=== PATIENT | male | born 1940 | race Hispanic/Latino ===

== ENCOUNTER 2020-05-27 07:49 | Inpatient (IN) | payer OTHER, SELFPAY ==
[2020-05-27 08:20] LABS: Absolute Lymphocytes (CBC) 1.6 K/uL (0.7-4.9); Basophils % 0.6 % (0-1.3); Hematocrit 44.8 % (39.6-49.0); Lymphocytes % 18.1 % (15.3-44.8); MPV 8.3 fL (7.6-11.3); RBC Red Blood Cell Count 5.22 M/uL (4.33-5.43)
[2020-05-27 08:29] LABS: Protime INR 0.97
[2020-05-27 08:32] LABS: BUN Blood Urea Nitrogen 15 mg/dL (7-18); Bicarbonate 26 mmol/L (21-32); Glucose Level 106 mg/dL (74-106); Magnesium 1.9 mg/dL (1.8-2.4); Potassium 3.6 mmol/L (3.5-5.1); Sodium Level 137 mmol/L (136-145); Troponin (Emerg Dept Use Only) < 0.02 ng/mL (0.0-0.045)
--- NOTE | 2020-05-27 08:46 | RAD REPORT ---
EXAM DESCRIPTION: CT - Head Brain Wo Cont - 05/27/2020 8:25 am CLINICAL HISTORY: eft sided weakness and numbness COMPARISON: No comparisons TECHNIQUE: Axial 5 mm thick images of the head were obtained without IV contrast. All CT scans are performed using dose optimization technique as appropriate and may include automated exposure control or mA/KV adjustment according to patient size. FINDINGS: No intracranial hemorrhage, mass, edema or shift of mid-line structures. No acute cortical based infarction identified. No cortical edema or sulcal effacement. Moderate severity atrophy taveras es are present with ventricles in proportion to the volume loss. Chronic ischemic changes are seen th roughout the cerebral white matter and to a lesser degree in the brainstem and basal ganglia. Mastoid air cells and visualized portions of the paranasal sinuses are clear. No acute bony findings. Findings communicated to the emergency department 8:41 a.m.. IMPRESSION: No hemorrhage is present. No acute cortical based infarction seen. Moderate severity atrophy present with ventricles in proportion. Moderate severity chronic ischemic change. Chronic ischemic change can mask nonhemorrhagic white ewelina er CVA.
--- NOTE | 2020-05-27 09:22 | ER ---
Nurse's Notes [facility] Name: Ronnell Levy Age: 80 yrs Sex: Male : 1940 Arrival Date: 05/27/2020 Time: 07:50 Bed 5 Private MD: Diagnosis: Cerebral infarction;Weakness;Paresthesia of skin Presentation: 05/27 08:00 Chief complaint: Left sided weakness since Thursday. Coronavirus screen: At this time, hb the client does not indicate any symptoms associated with coronavirus-19. Ebola Screen: No symptoms or risks identified at this time. Initial Sepsis Screen: Does the patient meet any 2 criteria? No. Patient's initial sepsis screen is negative. Does the patient have a suspected source of infection? No. Patient's initial sepsis screen is negative. Risk Assessment: Do you want to hurt yourself or someone else? Patient reports no desire to harm self or others. Onset of symptoms was May 25, 2020. 08:00 Method Of Arrival: Wheelchair hb 08:00 Acuity: MARCIE 3 hb Historical: - Allergies: 08:02 No Known Allergies; hb - PMHx: 08:02 Hypertension; hb - Immunization history:: Adult Immunizations up to date. - Social history:: Smoking status: Patient denies any tobacco usage or history of. - Family history:: not pertinent. - Hospitalizations: : No recent hospitalization is reported. Screenin:03 Abuse screen: Denies threats or abuse. Denies injuries from another. Nutritional hb screening: No deficits noted. On. Tuberculosis screening: No symptoms or risk factors identified. Fall Risk Total Muñoz Fall Scale indicates Low Risk Score (25-44 pts). Fall prevention measures have been instituted. Side Rails Up X 2 Frequent Obs/Assesments occuring Family Present and informed to notify staff if they need to leave bedside As available Patient and Family Educated on Fall Prevention Program and strategies. 08:11 Patient has been NPO before screening. The patient is alert, able to follow commands. sv The patient does not exhibit slurred or garbled speech The patient is not exhibiting difficulty speaking. The patient does not exhibit difficulty understanding words. The patient is able to swallow own secretions with no drooling or need for suction. Patient tolerated one teaspoon of water. No drooling, immediate coughing, gurgling, or clearing of the throat was noted. The patient tolerated 90mL of water. No drooling, immediate coughing, gurgling, or clearing of the throat was noted. The patient passed the bedside swallow screening. Oral medications may be given as ordered. Contact Physician for further diet orders. Provider notified of bedside swallow screening results: Graeme Hogan MD. Assessment: 07:55 General: Appears in no apparent distress. comfortable, slender, Behavior is calm, sv cooperative, appropriate for age. Pain: Denies pain. Neuro: Level of Consciousness is awake, alert, obeys commands, Oriented to person, place, time, situation, Moves all extremities. Weakness in left arm(s) leg(s) Speech is normal, Facial symmetry appears normal, Reports weakness. Cardiovascular: Patient's skin is warm and dry. Rhythm is sinus rhythm. Respiratory: Airway is patent Respiratory effort is even, unlabored, Respiratory pattern is regular, symmetrical. Derm: Skin is pink, warm \T\ dry. 09:20 Reassessment: Patient appears in no apparent distress at this time. No changes from sv previously documented assessment. Patient and/or family updated on plan of care and expected duration. Pain level reassessed. Patient is alert, oriented x 3, equal unlabored respirations, skin warm/dry/pink. 09:36 Reassessment: Dr Fontenot at the bedside. sv 10:17 Reassessment: Attempted to call report, nurse unavailable. sv 10:30 Reassessment: Patient appears in no apparent distress at this time. No changes from sv previously documented assessment. Patient and/or family updated on plan of care and expected duration. Pain level reassessed. Patient is alert, oriented x 3, equal unlabored respirations, skin warm/dry/pink. 10:39 Reassessment: Pt to go upstairs after her room is cleaned upstairs. 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 ds1 07:51 Graeme Hogan MD is Attending Physician. rn 07:58 Emmie Noyola, JOSE DAVID is Primary Nurse. sv 08:00 Inserted saline lock: 20 gauge in right forearm, using aseptic technique. Blood sv collected. Flushed right forearm with 5 ml normal saline. 08:02 Triage completed. hb 08:02 Arm band placed on. hb 08:03 Patient has correct armband on for positive identification. Bed in low position. Call hb light in reach. 08:11 EKG done, by ED staff, reviewed by Graeme Hogan MD. em 08:26 Head Brain Wo Cont In Process Unspecified. EDMS 08:32 X-ray(s) taken. sv 08:40 Stroke CXR 1 View In Process Unspecified. EDMS 09:21 Kali Fontenot is Hospitalizing Provider. rn 09:32 Awaiting bed assignment. sv 10:37 No provider procedures requiring assistance completed. Patient admitted, IV remains in sv place. intact. Administered Medications: 09:20 Drug: foLIC Acid 1 mg Route: IVPB; Site: right forearm; sv 09:21 Follow up: Response: No adverse reaction; IV Status: Completed infusion sv 09:20 Drug: Aspirin Chewable Tablet 324 mg Route: PO; sv 09:37 Follow up: Response: No adverse reaction sv Outcome: 09:21 Decision to Hospitalize by Provider. rn 10:37 Admitted to Tele accompanied by tech, via stretcher, room 211, with chart, Report sv called to [facility] 10:37 Condition: stable 10:37 Instructed on the need for admit. 10:49 Patient left the ED. sv NIH Stroke Scale - NIH Stroke Score Date: 05/27/2020 Time: 07:55 Total Score = 4 1a. Level of Consciousness (LOC) - 0(Alert) 1b. Level of Consciousness (LOC) (Year \T\ Age) - 0(Both) 1c. LOC Commands (Open \T\ Closes Eyes/Patrol Conductor) - 0(Both) 2. Best Gaze (Lateral Gaze Paresis) - 0(Normal) 3. Visual Field Loss - 0(No visual loss) 4. Facial Palsy - 0(Normal) 5a. Left Arm: Motor (10-second hold) - 1(Drift) 5b. Right Arm: Motor (10-second hold) - 0(No drift) 6a. Left Leg: Motor (5-second hold - always test supine) - 2(Drift, some effort against gravity) 6b. Right Leg: Motor (5-second hold - always test supine) - 0(No drift) 7. Limb Ataxia (finger/nose \T\ heel/roach - test with eyes open) - 0(Absent) 8. Sensory Loss (pinprick arms/legs/face) - 1(Mild to moderate loss) 9. Best Language: Aphasia (description/naming/reading) - 0(No aphasia) 10. Dysarthria (speech clarity - read or repeat words) - 0(Normal) 11. Extinction and Inattention (visual/tactile/auditory/spatial/personal) - 0(No abnormality) Initials: yo NIH Stroke Scale - NIH Stroke Score Date: 05/27/2020 Time: 08:03 Total Score = 4 1a. Level of Consciousness (LOC) - 0(Alert) 1b. Level of Consciousness (LOC) (Year \T\ Age) - 0(Both) 1c. LOC Commands (Open \T\ Closes Eyes/Patrol Conductor) - 0(Both) 2. Best Gaze (Lateral Gaze Paresis) - 0(Normal) 3. Visual Field Loss - 0(No visual loss) 4. Facial Palsy - 0(Normal) 5a. Left Arm: Motor (10-second hold) - 1(Drift) 5b. Right Arm: Motor (10-second hold) - 0(No drift) 6a. Left Leg: Motor (5-second hold - always test supine) - 2(Drift, some effort against gravity) 6b. Right Leg: Motor (5-second hold - always test supine) - 0(No drift) 7. Limb Ataxia (finger/nose \T\ heel/roach - test with eyes open) - 0(Absent) 8. Sensory Loss (pinprick arms/legs/face) - 1(Mild to moderate loss) 9. Best Language: Aphasia (description/naming/reading) - 0(No aphasia) 10. Dysarthria (speech clarity - read or repeat words) - 0(Normal) 11. Extinction and Inattention (visual/tactile/auditory/spatial/personal) - 0(No abnormality) Initials: rn Signatures: Dispatcher [employer] Emmie Woods RN RN sv Munoz, Edgar, Mecca Alaniz RN ds1 Graeme Hogan MD MD rn Baxter, Heather, RN RN hb
--- NOTE | 2020-05-27 09:22 | EDPHYS ---
Physician Documentation [facility] Name: Ronnell Levy Age: 80 yrs Sex: Male : 1940 Arrival Date: 05/27/2020 Time: 07:50 Bed 5 Private MD: ED Physician Graeme Hogan HPI: 05/27 08:28 This 80 yrs old Male presents to ER via Wheelchair with complaints of Left rn Side Weakness. 08:28 The patient presents to the emergency department with weakness of the left upper rn extremity, left lower extremity, difficulty standing, paresthesias of the left lower extremity, left upper extremity. Onset: The symptoms/episode began/occurred 3 day(s) ago. Associated signs and symptoms: Pertinent positives: weakness, Pertinent negatives: syncope, blurred vision, double vision, visual field changes, loss of vision. Severity of symptoms: At their worst the symptoms were moderate in the emergency department the symptoms are unchanged. Current symptoms: paralysis or paresis. The patient has not experienced similar symptoms in the past. Reports began Thursday with left sided weakness, got a little better, but never went away, woke up this morning with worse symptoms, unable to stand and fell forward. Has not seen a doctor for 11 years. No vision or speech problems. . Historical: - Allergies: 08:02 No Known Allergies; hb - PMHx: 08:02 Hypertension; hb - Immunization history:: Adult Immunizations up to date. - Social history:: Smoking status: Patient denies any tobacco usage or history of. - Family history:: not pertinent. - Hospitalizations: : No recent hospitalization is reported. ROS: 08:28 Constitutional: Negative for fever, chills, and weight loss, Eyes: Negative for injury, rn pain, redness, and discharge, Neck: Negative for injury, pain, and swelling, Cardiovascular: Negative for chest pain, palpitations, and edema, Respiratory: Negative for shortness of breath, cough, wheezing, and pleuritic chest pain, Abdomen/GI: Negative for abdominal pain, nausea, vomiting, diarrhea, and constipation, MS/Extremity: Negative for injury and deformity, Skin: Negative for injury, rash, and discoloration, Neuro: Negative for headache,and seizure. Exam: 08:28 Constitutional: This is a well developed, well nourished patient who is awake, alert, rn and in no acute distress. Head/Face: Normocephalic, atraumatic. Eyes: Pupils equal round and reactive to light, extra-ocular motions intact. Periorbital areas with no swelling, redness, or edema. Cardiovascular: Regular rate and rhythm. No pulse deficits. Respiratory: Speaking full sentences. No increased work of breathing, no retractions or nasal flaring. Abdomen/GI: soft, non-tender Back: No spinal tenderness. No costovertebral tenderness. Full range of motion. MS/ Extremity: Pulses equal, no cyanosis. Neuro: Awake and alert, GCS 15, oriented to person, place, time, and situation. Cranial nerves II-XII grossly intact. Motor strength 5/5 RUE/RLE, 4+/5 LUE, 4-/5 LLE. Decreased sensation to sharp prick LUE/LLE. Unable to support himself, almost fell trying to stand from wheelchair. 09:59 ECG was reviewed by the Attending Physician. rn Vital Signs: 08:00 BP 201 / 104; Pulse 82; Resp 16; Temp 97.8; Pulse Ox 100% ; Pain 0/10; hb 08:12 BP 193 / 101; Pulse 83; Resp 17; Pulse Ox 97% on R/A; sv 08:44 BP 171 / 93; Pulse 77 MON; Resp 20; Pulse Ox 98% on R/A; sv 10:03 BP 179 / 88; Pulse 80; Resp 17; Pulse Ox 98% ; sv 08:44 Sinus Rhythm sv NIH Stroke Scale Scores: 07:55 NIHSS Score: 4 sv 08:03 NIHSS Score: 4 rn MDM: 07:51 Patient medically screened. rn 08:04 ED course: Onset of symptoms Thursday, never went away totally, worse when woke up this rn morning, unable to stand.. 09:20 Data reviewed: vital signs, nurses notes, lab test result(s), EKG, radiologic studies, rn CT scan, and as a result, I will admit patient. Counseling: I had a detailed discussion with the patient and/or guardian regarding: the historical points, exam findings, and any diagnostic results supporting the discharge/admit diagnosis, lab results, radiology results, the need for further work-up and treatment in the hospital. Admission orders: after a detailed discussion of the patient's condition and case, the admit orders are written by me. ED course: Pt with no acute findings on ct head, likely ischemic stroke 3 days ago, will admit to Dr. Fontenot for stroke w/u, neuro consult, and MRI tomorrow. . 05/27 08:02 Order name: Magnesium; Complete Time: 08:34 rn 05/27 08:02 Order name: Troponin (emerg Dept Use Only); Complete Time: 08: rn 05/27 08:02 Order name: Basic Metabolic Panel; Complete Time: : rn 05/27 08:02 Order name: CBC with Diff; Complete Time: : rn 05/27 08:02 Order name: Protime (+inr); Complete Time: : rn 05/27 08:02 Order name: Ptt, Activated; Complete Time: : rn 05/27 08:02 Order name: Stroke CXR 1 View; Complete Time: 09:56 rn 05/27 08:02 Order name: EKG; Complete Time: 08:04 rn 05/27 08:02 Order name: Accucheck; Complete Time: 08: rn 05/27 08:11 Order name: Head Brain Wo Cont; Complete Time: 09:00 EDMS 05/27 08:18 Order name: Glucose, Ancillary Testing; Complete Time: :34 EDMS 05/27 08:02 Order name: Cardiac monitoring; Complete Time: 08: rn 05/27 08:02 Order name: EKG - Nurse/Tech; Complete Time: 08: rn 05/27 08:02 Order name: IV Saline Lock; Complete Time: 08: rn 05/27 08:02 Order name: Labs collected and sent; Complete Time: 08: rn 05/27 08:02 Order name: NPO; Complete Time: 08: rn 05/27 08:02 Order name: O2 Per Protocol; Complete Time: 08: rn 05/27 08:02 Order name: O2 Sat Monitoring; Complete Time: : rn 05/27 08:02 Order name: Stroke Swallow Screen; Complete Time: 08:10 rn EC:59 Rate is 79 beats/min. Rhythm is regular. QRS [place] is Normal. [place] interval is normal. QRS rn interval is normal. QT interval is normal. No Q waves. T waves are Normal. No ST changes noted. Clinical impression: Normal ECG. Interpreted by me. Reviewed by me. Administered Medications: 09:20 Drug: foLIC Acid 1 mg Route: IVPB; Site: right forearm; sv 09:21 Follow up: Response: No adverse reaction; IV Status: Completed infusion sv 09:20 Drug: Aspirin Chewable Tablet 324 mg Route: PO; sv 09:37 Follow up: Response: No adverse reaction sv Disposition: 05/27/20 09:21 Hospitalization ordered by Kali Fontenot for Inpatient Admission. Preliminary diagnosis are Cerebral infarction, Weakness, Paresthesia of skin. - Bed requested for Telemetry/MedSurg (Inpatient). - Status is Inpatient Admission. sv - Condition is Stable. - Problem is new. - Symptoms are unchanged. NIH Stroke Scale - NIH Stroke Score Date: 05/27/2020 Time: 07:55 Total Score = 4 1a. Level of Consciousness (LOC) - 0(Alert) 1b. Level of Consciousness (LOC) (Year \T\ Age) - 0(Both) 1c. LOC Commands (Open \T\ Closes Eyes/Clamp Truck Driver) - 0(Both) 2. Best Gaze (Lateral Gaze Paresis) - 0(Normal) 3. Visual Field Loss - 0(No visual loss) 4. Facial Palsy - 0(Normal) 5a. Left Arm: Motor (10-second hold) - 1(Drift) 5b. Right Arm: Motor (10-second hold) - 0(No drift) 6a. Left Leg: Motor (5-second hold - always test supine) - 2(Drift, some effort against gravity) 6b. Right Leg: Motor (5-second hold - always test supine) - 0(No drift) 7. Limb Ataxia (finger/nose \T\ heel/roach - test with eyes open) - 0(Absent) 8. Sensory Loss (pinprick arms/legs/face) - 1(Mild to moderate loss) 9. Best Language: Aphasia (description/naming/reading) - 0(No aphasia) 10. Dysarthria (speech clarity - read or repeat words) - 0(Normal) 11. Extinction and Inattention (visual/tactile/auditory/spatial/personal) - 0(No abnormality) Initials: sv NIH Stroke Scale - NIH Stroke Score Date: 05/27/2020 Time: 08:03 Total Score = 4 1a. Level of Consciousness (LOC) - 0(Alert) 1b. Level of Consciousness (LOC) (Year \T\ Age) - 0(Both) 1c. LOC Commands (Open \T\ Closes Eyes/Clamp Truck Driver) - 0(Both) 2. Best Gaze (Lateral Gaze Paresis) - 0(Normal) 3. Visual Field Loss - 0(No visual loss) 4. Facial Palsy - 0(Normal) 5a. Left Arm: Motor (10-second hold) - 1(Drift) 5b. Right Arm: Motor (10-second hold) - 0(No drift) 6a. Left Leg: Motor (5-second hold - always test supine) - 2(Drift, some effort against gravity) 6b. Right Leg: Motor (5-second hold - always test supine) - 0(No drift) 7. Limb Ataxia (finger/nose \T\ heel/roach - test with eyes open) - 0(Absent) 8. Sensory Loss (pinprick arms/legs/face) - 1(Mild to moderate loss) 9. Best Language: Aphasia (description/naming/reading) - 0(No aphasia) 10. Dysarthria (speech clarity - read or repeat words) - 0(Normal) 11. Extinction and Inattention (visual/tactile/auditory/spatial/personal) - 0(No abnormality) Initials: rn Signatures: Dispatcher [employer] Emmie Woods RN RN sv Nieto, Roman, MD MD rn Baxter, Heather, RN RN hb Botello, Elizabeth eb Corrections: (The following items were deleted from the chart) 08:11 08:05 CT-STROKE BRAIN W/O CONTRAST+CT.RAD.BRZ ordered. [facility] EDPA 10:11 09:21 Hospitalization Ordered by Kali Fontenot for Inpatient Admission. [place] Preliminary diagnosis is Cerebral infarction; Weakness; Paresthesia of skin. Bed requested for Telemetry/MedSurg (Inpatient). Status is Inpatient Admission. Condition is Stable. Problem is new. Symptoms are unchanged. rn 10:49 10:11 05/27/2020 09:21 Hospitalization Ordered by Kali Fontenot for Inpatient Admission. Preliminary diagnosis is Cerebral infarction; Weakness; Paresthesia of skin. Bed requested for Telemetry/MedSurg (Inpatient). Status is Inpatient Admission. Condition is Stable. Problem is new. Symptoms are unchanged. eb
[2020-05-27] MEDS ORDERED: ASPIRIN 81 MG CHEWABLE TABLET ONE (09:23)
[2020-05-27] MEDS ORDERED: FOLIC ACID 5 MG/ML VIAL ONE (09:28)
--- NOTE | 2020-05-27 09:46 | RAD REPORT ---
EXAM DESCRIPTION: RAD - Chest Single View - 05/27/2020 8:40 am CLINICAL HISTORY: weakness, Stroke protocol chest COMPARISON: January 2009 TECHNIQUE: AP portable chest image was obtained 05/27/2020 8:40 am . FINDINGS: No focal mass or consolidation. Interstitial pattern matches comparison. Heart and vascula ture are normal. No measurable pleural effusion and no pneumothorax. No acute bony abnormality seen. No acute aortic findings suspected. IMPRESSION: No acute cardiopulmonary process. No significant change from remote 2008 study.
--- NOTE | 2020-05-27 10:10 | P.HP ---
Certification for Inpatient Patient admitted to: Observation With expected LOS: <2 Midnights Practitioner: I am a practitioner with admitting privileges, knowledge of patient current condition, hospital course, and medical plan of care. Services: Services provided to patient in accordance with Admission requirements found in Title 42 Section 412.3 of the Code of Federal Regulations Patient History Date of Service: 05/27/20 Reason for admission: Left-sided weakness History of Present Illness: 80-year-old Latvian-speaking gentleman with a history of hypertension noncompliant with medications, the smoker presented emergency department with a complaint of left sided weakness of onset about 3 days ago. Patient stated his left leg gave way and have had trouble walking. Son mentioned patient has fallen about a couple of times since the onset of his symptoms. He is also complaining of left arm weakness. He denied any visual problem, swallow all speech problem. He denied any headache. His blood pressure in the emergency department was elevated to 185/100. CT head did not show any acute changes. EKG is unremarkable. Patient is placed under observation for further workup for stroke. - Past Medical/Surgical History -: Hypertension -: Cholecystectomy - Family History Family History: Reviewed- Non-Contributory (No known family history of disease) - Social History Smoking Status: Current every day smoker Alcohol use: No CD- Drugs: No Place of Residence: Home Review of Systems Other: Except as documented, all other systems reviewed and negative. Physical Examination - Physical Exam General: Alert, In no apparent distress, Oriented x3 HEENT: Normocephalic, PERRLA, Mucous membr. moist/pink, EOMI, Sclerae nonicteric Neck: Supple, JVD not distended Respiratory: Clear to auscultation bilaterally, Normal air movement Cardiovascular: No edema, Regular rate/rhythm, Normal S1 S2 Capillary refill: <2 Seconds Gastrointestinal: Normal bowel sounds, Soft and benign, No tenderness Musculoskeletal: No swelling, No erythema Integumentary: No rashes, No tenderness/swelling Neurological: Normal speech, Abnormal strength (Left lower extremity 4/5, left upper extremity4/5. 5/5 in the right extremities.) - Studies Laboratory Data (last 24 hrs) 05/27/20 08:00: PT 11.5, INR 0.97, APTT 31.3 05/27/20 08:00: WBC 8.9, Hgb 14.9, Hct 44.8, Plt Count 295 05/27/20 08:00: Sodium 137, Potassium 3.6, BUN 15, Creatinine 0.99, Glucose 106, Magnesium 1.9 Assessment and Plan - Problems (Diagnosis) (1) Acute CVA (cerebrovascular accident) Current Visit: Yes Status: Acute (2) Hypertension Current Visit: Yes Status: Acute - Plan Place under observation. Start aspirin 162 mg daily. Lipitor 40 mg daily Check lipid profile and hemoglobin A1c. Obtain MRI of the brain, carotid Doppler and echocardiogram. Consult to physical and occupational therapy. Has no problem with speech or swallowing. - Advance Directives Does patient have a Living Will: No Does patient have a Durable POA for Healthcare: No
[2020-05-27 11:36] VITALS: BMI 24.3
[2020-05-27] MEDS: NA CHLORIDE 0.9% 1,000 ML IV SCH ×2 (12:17→23:41)
[2020-05-27] MEDS ORDERED: LABETALOL 20 MG/4ML SYRINGE IV PRN (13:08)
[2020-05-27] MEDS: ENOXAPARIN 40 MG/0.4 ML SQ SCH (13:31)
[2020-05-27] MEDS: AMLODIPINE 10 MG TAB PO SCH (13:31)
[2020-05-27] MEDS ORDERED: INFLUENZA VACCINE (for 3y+) 0.5 ML DOSE IMVAC ONE (14:00)
[2020-05-27] MEDS ORDERED: PNEUMOCOCCAL VACCINE 0.5 ML IMVAC ONE (14:00)
--- NOTE | 2020-05-27 20:17 | RAD REPORT ---
EXAM DESCRIPTION: - CP - 05/27/2020 7:33 pm CLINICAL HISTORY: Left-sided weakness COMPARISON: No comparisons TECHNIQUE: Real-time sonographic evaluation of bilateral carotid and vertebral systems was performed . Monte scale and Doppler interrogation were performed with waveform tracing bilaterally. FINDINGS: Normal high resistance waveforms are noted in both external carotid arteries. The common c arotid arteries and internal carotid arteries show normal low resistance waveforms. Calcified and noncalcified plaquing changes are present in each common carotid artery and carotid bul b. Visually there is no significant luminal narrowing identified. No dissection seen. Peak systolic a nd end diastolic velocity values and the ICA/CCA ratios are in the non-hemodynamically significant ra nge. Antegrade flow seen in both vertebral arteries. Velocity values and ratios were recorded and are retained in the patient's imaging records. IMPRESSION: Bilateral calcified and noncalcified common carotid and carotid bulb plaquing changes. V isually no significant luminal narrowing. Velocity values and ratios also indicate no significant degree of stenosis.
[2020-05-27] MEDS ORDERED: ATORVASTATIN 20 MG TAB PO SCH (21:00)
[2020-05-28] MEDS ORDERED: ACETAMINOPHEN 500 MG TAB PO PRN (00:56)
[2020-05-28 04:17] LABS: Absolute Lymphocytes (CBC) 1.9 K/uL (0.7-4.9); Basophils % 1.2 % (0-1.3); Hematocrit 38.8 % (39.6-49.0); Lymphocytes % 22.3 % (15.3-44.8); MPV 8.4 fL (7.6-11.3); RBC Red Blood Cell Count 4.51 M/uL (4.33-5.43)
[2020-05-28 04:32] LABS: Phosphorus 2.5 mg/dL (2.5-4.9); Potassium 3.4 mmol/L (3.5-5.1); Thyroid Stimulating Hormone 1.82 uIU/mL (0.360-3.740)
[2020-05-28] MEDS ORDERED: POTASSIUM CL SA 10 MEQ TAB PO ONE (04:53)
[2020-05-28] MEDS ORDERED: ENOXAPARIN 40 MG/0.4 ML SQ SCH (09:00)
--- NOTE | 2020-05-28 10:02 | P.PN ---
Subjective Date of Service: 05/28/20 Chief Complaint: Left-sided weakness Patient has no new complaint this morning. He stated his left arm is still a little bit weak. He has no problem with swallowing or speech or gait. Carotid Doppler is unremarkable. Physical Examination - Vital Signs Temperature: 97.6 F Blood Pressure: 155/76 Pulse: 69 Respirations: 18 Pulse Ox (%): 96 - Physical Exam General: Alert, In no apparent distress HEENT: PERRLA, Sclerae nonicteric Neck: Supple Respiratory: Clear to auscultation bilaterally, Normal air movement Cardiovascular: No edema, Regular rate/rhythm, Normal S1 S2 Gastrointestinal: Normal bowel sounds, Soft and benign, No tenderness Musculoskeletal: No swelling, No erythema Integumentary: No rashes Neurological: Other (Power 4+/5 in the left upper extremity. 5/5 in all other extremities.) Assessment And Plan - Current Problems (Diagnosis) (1) Acute CVA (cerebrovascular accident) Current Visit: Yes Status: Acute (2) Hypertension Current Visit: Yes Status: Acute - Plan Continue aspirin and lipitor LDL is 130 Hemoglobin A1c is 5.9. No diabetes MRI of the brain reports multiple punctate acute infarctions in the right cerebral hemisphere suggestive of embolic event. Echocardiogram is pending. Case discussed with neurology-Dr. Mari who recommended well antiplatelet therapy. Plavix added to aspirin. Lipitor increased to 80 mg daily. Consult placed for Dr. Mari to see him. Permissive hypertension. PT suggest inpatient rehab.
[2020-05-28] MEDS: NA CHLORIDE 0.9% 1,000 ML IV SCH (10:09)
[2020-05-28] MEDS: AMLODIPINE 10 MG TAB PO SCH (10:11)
[2020-05-28] MEDS: ENOXAPARIN 40 MG/0.4 ML SQ SCH (10:11)
[2020-05-28] MEDS: ASPIRIN EC 81 MG TAB PO SCH (10:11)
--- NOTE | 2020-05-28 12:17 | RAD REPORT ---
EXAM DESCRIPTION: CT Head Without Intravenous Contrast CLINICAL HISTORY: The patient is 80 years old and is Male; headache,S/P CVA TECHNIQUE: Axial computed tomography images of the head/brain without intravenous contrast. Sagitt al and coronal reformatted images were created and reviewed. This CT exam was performed using one o r more of the following dose reduction techniques: automated exposure control, adjustment of the mA and/or kV according to patient size, and/or use of iterative reconstruction technique. COMPARISON: CT of the head May 28, 2020 FINDINGS: BRAIN: There is diffuse cerebral atrophy present, consistent with this patient's age. There is patchy hypoattenuation of the deep white matter which is non-specific, but most likely owing to chronic small vessel ischemic change in a patient of this age group. No intracranial hemorrhage , mass effect, or midline shift is seen. There are no extra-axial fluid collections. VENTRICLES: There is diffuse prominence of the ventricles, which is likely related to central at rophy. BONES/JOINTS: No acute fracture. SOFT TISSUES: Unremarkable. SINUSES: Unremarkable as visualized. No acute sinusitis. MASTOID AIR CELLS: Unremarkable as visualized. No mastoid effusion. ORBITS: Unremarkable as visualized. IMPRESSION: Age-related atrophy and chronic white matter ischemic changes, with no evidence of an ac lime intracranial abnormality. Electronically signed by: Dhara Smith MD 05/28/2020 2:22 AM CDT Due to temporary technical issues with the PACS/Fluency reporting system, reports are being signed by the in house radiologist without review as a courtesy to ensure prompt reporting. The interpreting r adiologist is fully responsible for the content of the report.
--- NOTE | 2020-05-28 16:19 | RAD REPORT ---
EXAM DESCRIPTION: MRI - Brain Wo Cont - 05/28/2020 3:42 pm CLINICAL HISTORY: Left sided weakness COMPARISON: Head Brain Wo Cont dated 05/28/2020 TECHNIQUE: Sagittal T1-weighted images were obtained along with axial PD, heavily T2-weighted and T2 -FLAIR images. Axial DWI and ADC mapping sequences were also obtained along with coronal heavily T2-w eighted images. FINDINGS: Numerous punctate areas of hyperintense signal noted on the diffusion-weighted imaging in the right cerebral hemisphere. These are cortical and subcortical in distribution. These are primaril y in the right frontal lobe. There is a punctate cortical focus in the anterior midline right frontal lobe as well. There is a 10 x 2 mm diffusion signal abnormality in the medial margin of the right pa rietal lobe. The white matter lesions are in a watershed distribution which could indicate a hypotensive event. Ho wever, there are additional cortical based acute infarctions that would favor a shower emboli process . Most are right middle cerebral artery in distribution. There is at least 1 right frontal lobe lesio n that is in the anterior cerebral artery distribution. These all have corresponding diminished signa l on ADC mapping. Patient has underlying moderate severity atrophy. Ventricles are in proportion. Chronic ischemic meredith ges are seen in the periventricular white matter. Thalamus, basal ganglia and brainstem tissues gener ally spared from this chronic ischemic pattern. There is no edema or shift of midline structures. No extra-axial fluid collections. Monte-matter/white matter junction is preserved. Signal voids are seen as a normal finding in the major intracranial vessels. No globe or orbital content abnormality. Mastoid air cells and paranasal sinuses are clear. IMPRESSION: Acute nonhemorrhagic infarction changes are present in the right cerebral hemisphere. T he scattered punctate infarctions are both cortical and white matter in distribution. No associated mass effect or edema. Findings are superimposed on moderate severity atrophy and mild t o moderate chronic ischemic change. The presence of cortical infarctions suggest a shower emboli process. This is in both the right middl e and right anterior cerebral artery distributions.
[2020-05-28] MEDS ORDERED: ATORVASTATIN 80 MG TAB PO SCH (21:00)
[2020-05-29 01:25] VITALS: O2SAT 98
[2020-05-29] MEDS: NA CHLORIDE 0.9% 1,000 ML IV SCH ×2 (03:09→16:21)
[2020-05-29] MEDS: ASPIRIN EC 81 MG TAB PO SCH (08:27)
[2020-05-29] MEDS: AMLODIPINE 10 MG TAB PO SCH (08:28)
[2020-05-29] MEDS: ENOXAPARIN 40 MG/0.4 ML SQ SCH (08:32)
[2020-05-29] MEDS ORDERED: CLOPIDOGREL 75 MG TABLET PO SCH (09:00)
--- NOTE | 2020-05-29 10:26 | ECHO ---
HEIGHT: 5 ft 8 in WEIGHT: 160 lb 0 oz DATE OF STUDY: 05/28/[address]: haseeb amaya 2-DIMENSIONAL: YES M.MODE: YES DOPPLER: YES COLOR FLOW: YES TDS: NO PORTABLE: NO DEFINITY: NO BUBBLE STUDY: NO DIAGNOSIS: STROKE CARDIAC HISTORY: CATHERIZATION: SURGERY: PROSTHETIC VALVE: PACEMAKER: MEASUREMENTS (cm) DIASTOLIC (NORMALS) SYSTOLIC (NORMALS) IVSd 1.3 (0.6-1.2) LA Diam 2.9 (1.9-4.0) LVEF 66% LVIDd 4.9 (3.5-5.7) LVIDs 3.1 (2.0-3.5) %FS 36% LVPWd 1.2 (0.6-1.2) Ao Diam 2.5 (2.0-3.7) 2 DIMENSIONAL ASSESSMENT: RIGHT ATRIUM: NORMAL LEFT ATRIUM: NORMAL RIGHT VENTRICLE: NORMAL LEFT VENTRICLE: MILD LEFT VENTRICULAR HYPERTROPHY TRICUSPID VALVE: NORMAL MITRAL VALVE: MILD MITRAL REGURGITATION PULMONIC VALVE: MILD PULMONARY INSUFFICIENCY AORTIC VALVE: MILD AORTIC INSUFFICIENCY PERICARDIAL EFFUSION: NORMAL AORTIC ROOT: NORMAL LEFT VENTRICULAR WALL MOTION: NORMAL. DOPPLER/COLOR FLOW: NORMAL. COMMENTS: NORMAL LEFT VENTRICULAR EJECTION FRACTION 55-60% WITH NORMAL WALL MOTION. MILD DIASTOLIC DYSFUNCTION. MILD PULMONARY INSUFFICIENCY, MILD MITRAL REGURGITATION, MILD AORTIC INSUFFICIENCY. TECHNOLOGIST: HUMZA VALLE
[2020-05-29 16:38] VITALS: BP 153/68; TEMP 97.8
--- NOTE | 2020-05-29 16:53 | P.DS ---
Admission Date: 05/28/20 Discharge Date: 05/29/20 Disposition: DC HOME/HOME HEALTH CARE Discharge Condition: FAIR Reason for Admission: Left-sided weakness Consultations: Neurology - Dr. Mari Procedures: CXR (05/2025): No acute cardiopulmonary process CT head (05/27): No hemorrhage, no acute cortical based infarction seen. Moderate severity atrophy present with ventricles in proportion. Moderate se verity chronic ischemic change. Chronic ischemic change can mask nonhemorrhagic white matter CVA. Carotid ultrasound (05/27): Bilateral calcified and noncalcified common carotid and carotid bulb plaquing changes. Visually no significant luminal narrowing. Glossy values in ratios also indicate no significant degree of stenosis. TTE( 05/27): Normal LV EF (55-60%, normal wall motion. Mild diastolic dysfunction. Mild pulmonary insufficiency, mild mitral regurgitation, mild aortic insufficiency MRI of brain (05/28): Acute nonhemorrhagic infarction changes are present in the right cerebral hemisphere. The scattered punctate infarctions are both cortical and white matter in distribution. No associated mass effect or edema. Findings are superimposed on moderate severity atrophy and mild to moderate chronic ischemic change. The presence of cortical infarctions suggest a shower emboli process. This is in both the right middle and right anterior cerebral artery distributions. Problem list Acute embolic CVA Hypertension Nicotine dependence Brief History of Present Illness: 80-year-old [place]-speaking gentleman with a history of hypertension noncompliant with medications, and smoker presented emergency department with a complaint of left sided weakness of onset about 3 days ago. Patient stated his left leg gave way and has had trouble walking. Son mentioned patient has fallen about a couple of times since the onset of his symptoms. He is also complaining of left arm weakness. He denied any visual problem, swallow or speech problem. His blood pressure in the emergency department was elevated to 185/100. CT head did not show any acute changes. EKG is unremarkable. Patient is placed under observation for further workup for stroke. Hospital Course: Patient underwent further evaluation for stroke. MRI consistent with acute nonhemorrhagic infarction changes in the right cerebral hemisphere is just in a shower emboli process. Neurology was consulted who recommended treatment with aspirin and Plavix, as well as high dose statin and folic acid. Patient was noted to be hypertensive throughout his hospitalization, which improved with 10 mg Norvasc, and this will be prescribed for the patient upon discharge. Patient was evaluated by a PT and had significant improvement of his left sided weakness, was able to ambulate on his own. The patient refused any recommendations for inpatient rehab or detention. In discussion was had with his family who felt comfortable with him being discharged home. His son stated they would be able to stay with him and keep a close eye on the patient over the next 1-2 weeks. Patient is discharged home with home health. On the day of discharge, patient was very anxious to be discharged home, and at times did not seem fully understand the gravity of the situation and the importance of compliance with his medications. The patient's son stated this is the patient's baseline. The importance of medication compliance was also discussed with the son who stated family members will help the patient take his medications. Vital Signs/Physical Exam: Temp Pulse Resp BP Pulse Ox 97.8 F 78 18 153/68 H 99 05/29/20 16:00 05/29/20 16:00 05/29/20 16:00 05/29/20 16:00 05/29/20 16:00 General: Alert, In no apparent distress, Oriented x3 HEENT: Sclerae nonicteric Neck: No LAD Respiratory: Clear to auscultation bilaterally Cardiovascular: No edema, Regular rate/rhythm, Normal S1 S2 Gastrointestinal: Soft and benign, Non-distended, No tenderness Musculoskeletal: No tenderness Integumentary: No rashes, No breakdown Neurological: Normal speech, Normal strength at 5/5 x4 extr, Normal affect Laboratory Data at Discharge: WBC 8.7 K/uL (4.3-10.9) 05/28/20 03:32 Hgb 13.4 g/dL (13.6-17.9) L 05/28/20 03:32 Hct 38.8 % (39.6-49.0) L 05/28/20 03:32 Plt Count 262 K/uL (152-406) 05/28/20 03:32 PT 11.5 SECONDS (9.5-12.5) 05/27/20 08:00 INR 0.97 05/27/20 08:00 APTT 31.3 SECONDS (24.3-36.9) 05/27/20 08:00 Sodium 137 mmol/L (136-145) 05/28/20 03:32 Potassium 4.6 mmol/L (3.5-5.1) 05/28/20 13:22 BUN 14 mg/dL (7-18) 05/28/20 03:32 Creatinine 0.93 mg/dL (0.55-1.3) 05/28/20 03:32 Glucose 96 mg/dL (74-106) 05/28/20 03:32 Phosphorus 2.5 mg/dL (2.5-4.9) 05/28/20 03:32 Magnesium 2.0 mg/dL (1.8-2.4) 05/28/20 03:32 Triglycerides 100 mg/dL (<150) 05/28/20 03:32 Cholesterol 194 mg/dL (<200) 05/28/20 03:32 HDL Cholesterol 44 mg/dL (40-60) 05/28/20 03:32 Cholesterol/HDL Ratio 4.41 05/28/20 03:32 Home Medications: Amlodipine [Norvasc*] 10 mg PO DAILY 30 Days #30 tab 05/29/20 Aspirin [Aspirin EC 81 MG] 81 mg PO DAILY 30 Days #30 tablet. 05/29/20 Atorvastatin Calcium [Lipitor] 80 mg PO BEDTIME 30 Days #30 tab 05/29/20 Clopidogrel Bisulfate [Plavix*] 75 mg PO DAILY 30 Days #30 tablet 05/29/20 Folic Acid 0.4 mg PO DAILY 30 Days #30 tablet 05/29/20 New Medications: Aspirin [Aspirin EC 81 MG] 81 mg PO DAILY 30 Days #30 tablet. Folic Acid 0.4 mg PO DAILY 30 Days #30 tablet Atorvastatin Calcium [Lipitor] 80 mg PO BEDTIME 30 Days #30 tab Amlodipine [Norvasc*] 10 mg PO DAILY 30 Days #30 tab Clopidogrel Bisulfate [Plavix*] 75 mg PO DAILY 30 Days #30 tablet Patient Discharge Instructions: follow up with PCP within 1 week. follow up with neurology (Dr. Mari) within 2-3 weeks. Diet: AHA Activity: Fall precautions Followup: Mark Mari MD [ASSOCIATE-ACTIVE - CAN ADMIT] - NONE,NONE [Primary Care Provider] - Time spent managing pt's care (in minutes): 40
== END 2020-05-29 18:31 | disposition home health service (06) | DRG 65 ==
LOC: ER 07:49 → INTOOBSV 10:01 → OBSVTOIN 10:01 → ERHOLD 10:01 → 2ND 10:40 → OBSVTOIN 05-28 18:24
PROVIDERS: ADMIT Internal Medicine; ATTEND Hospitalist
DX: I63.9 Cerebral infarction, unspecified (principal); G81.94 Hemiplegia, unspecified affecting left nondominant side; I10 Essential (primary) hypertension; F41.9 Anxiety disorder, unspecified; F17.200 Nicotine dependence, unspecified, uncomplicated; R20.2 Paresthesia of skin; R29.704 NIHSS score 4; Z91.14 Patient's other noncompliance with medication regimen; Z90.49 Acquired absence of other specified parts of digestive tract; Z79.82 Long term (current) use of aspirin; Z79.02 Long term (current) use of antithrombotics/antiplatelets; Z79.899 Other long term (current) drug therapy; Z20.828 Contact with and (suspected) exposure to other viral communicable diseases
CPT/HCPCS: 36415; 70450; 70551; 71045; 80048; 80061; 82947; 83036; 83735; 84100; 84132; 84443; 84484; 85025; 85610; 85652; 85730; 92610; 93005; 93306; 93880; 96374; 97112; 97116; 97161; 97530; 99285; G0378; J1650; J7030; U0002